=== PATIENT | female | born 1990 | race Caucasian/White ===

== ENCOUNTER 2024-06-27 14:21 | Emergency (ER) | payer OTHER ==
[2024-06-27 14:42] VITALS: RESP 16
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
--- NOTE | 2024-06-27 15:37 | XR ---
EXAMINATION TYPE: XR lumbar spine 2 or 3V DATE OF EXAM: 06/27/2024 3:22 PM COMPARISON: None CLINICAL INDICATION: female , 33 years old with history of pain; PHH, pain TECHNIQUE: XR lumbar spine 2 or 3V - Frontal, lateral and coned in L5-S1 lateral views of the spine. FINDINGS: No evidence of any acute osseous pathology. No evidence of loss of vertebral body height i s seen. There is normal alignment of the lumbar vertebral bodies. Scattered disc space narrowing. Mul tilevel marginal osteophyte formation throughout the visualized spine. There is facet joint arthropat hy throughout the spine. Scattered at least mild neural foraminal stenosis. IMPRESSION: 1. No acute fracture. 2. Mild multilevel disc degeneration. [facility], , 06/27/2024 3:35 PM
--- NOTE | 2024-06-27 15:45 | XR ---
EXAMINATION TYPE: XR hand complete RT DATE OF EXAM: 06/27/2024 3:22 PM COMPARISON: None CLINICAL INDICATION: Female, 33 years old with history of pain; PHH, pain TECHNIQUE: XR hand complete RT 3 views were obtained. FINDINGS: Normal alignment of the visualized joints. No acute osseous pathology is identified. No e vidence of soft tissue swelling. No significant degeneration IMPRESSION: No acute osseous pathology. [facility], , 06/27/2024 3:42 PM
[2024-06-27 16:05] VITALS: BP 124/86; PULSE 82; TEMP 98
== END 2024-06-27 16:06 | disposition home or self-care (01) ==
LOC: EC 14:21
DX: S16.1XXA Strain of muscle, fascia and tendon at neck level, initial encounter (principal); S39.012A Strain of muscle, fascia and tendon of lower back, initial encounter; S60.221A Contusion of right hand, initial encounter; F17.200 Nicotine dependence, unspecified, uncomplicated; V89.2XXA Person injured in unspecified motor-vehicle accident, traffic, initial encounter; Y92.410 Unspecified street and highway as the place of occurrence of the external cause
CPT/HCPCS: 70450; 72100; 72125; 99284